=== PATIENT | female | born 1950 ===

== ENCOUNTER 2024-12-24 09:40 | Outpatient (CLI) | payer OTHER ==
[2024-12-24 10:30] LABS: HEMATOCRIT 34.8 % (36.0-45.00); HEMOGLOBIN 11.4 g/dL (12.0-15.00); MEAN CORPUSCULAR HEMOGLOBIN 28.5 pg (27.00-32.0); MEAN CORPUSCULAR HGB CONC 32.8 g/dl (32.0-36.0); PLATELET COUNT 194 K/uL (150-450); RED CELL DISTRIBUTION WIDTH 14.8 % (11.5-14.5)
[2024-12-24 11:41] LABS: % SATURACION 22.3 % (15-50); ALBUMIN 3.8 gm/dL (3.4-5.0); BILIRUBIN TOTAL 0.46 mg/dL (0.3-1.2); CALCIUM 9.1 mg/dL (8.5-10.1); CREATININE SERUM 0.9 mg/dL (0.55-1.02); FERRITIN 32.3 NG/ML (8-252); GFR 61.37; GLOBULINA 3.2 G/DL (2.4-3.5); POTASSIUM 4.51 mEq/L (3.5-5.1); T4 FREE 0.92 NG/ML (0.76-1.46); TSH 1.65 uIU/mL (0.358-3.74)
[2024-12-24 12:08] LABS: FOLIC ACID > 20.00 ng/ml (4.78-20)
[2024-12-24 15:17] LABS: MANUAL PLATELET COUNT 398
[2024-12-24 15:18] LABS: PLATELET ESTIMATE NORMAL (NORMAL)
[2024-12-25 09:08] LABS: CA 125 3.1 U/mL (0.0-38.1); CA 19-9 9 U/mL (0-35)
[2024-12-25 13:09] LABS: ERYTHROPOIETIN 16.6 mIU/mL (2.6-18.5)
[2024-12-25 15:04] LABS: hgb a 97.4 % (96.4-98.8); hgb a2 2.6 % (1.8-3.2); hgb f 0 % (0.0-2.0); hgb s 0 % (0.0)
== END 2024-12-24 09:47 | disposition home or self-care (01) ==
LOC: LAB 09:40
PROVIDERS: ATTEND Internal Medicine Hematology & Oncology
DX: D51.1 Vitamin B12 deficiency anemia due to selective vitamin B12 malabsorption with proteinuria (principal); D51.3 Other dietary vitamin B12 deficiency anemia; E11.9 Type 2 diabetes mellitus without complications; E78.2 Mixed hyperlipidemia; K59.09 Other constipation; D50.8 Other iron deficiency anemias; R79.9 Abnormal finding of blood chemistry, unspecified; I10 Essential (primary) hypertension; R74.02 Elevation of levels of lactic acid dehydrogenase [LDH]; K76.89 Other specified diseases of liver; D63.8 Anemia in other chronic diseases classified elsewhere; D51.0 Vitamin B12 deficiency anemia due to intrinsic factor deficiency; E03.8 Other specified hypothyroidism; E06.3 Autoimmune thyroiditis; C50.919 Malignant neoplasm of unspecified site of unspecified female breast; R97.8 Other abnormal tumor markers; D63.1 Anemia in chronic kidney disease

== ENCOUNTER 2025-07-18 10:05 | Outpatient (CLI) | payer OTHER ==
[2025-07-18 11:04] LABS: BASO % 0.5 % (0.1-1.2); EOS # 0.11 (0.04-0.54); EOS % 1.9 % (0.7-7.0); LYMPH # 1.03 (1.18-3.74); LYMPH % 17.8 % (19.3-53.1); MEAN PLATELET VOLUME 11.00 fl (9.4-12.4); MONO # 0.41 (0.24-0.82); MONO % 7.1 % (4.7-12.5); NEUT # 4.19 (1.56-6.13); NEUT % 72.4 % (34.0-71.1); RED CELL DISTRIBUTION WIDTH 14.7 % (11.6-14.4)
[2025-07-18 11:07] LABS: URINE APPEARANCE Clear; URINE BILIRRUBIN Negative (NEGATIVE); URINE BLOOD Negative; URINE COLOR Yellow; URINE GLUCOSE Negative (NEGATIVE); URINE KETONE Negative (NEGATIVE); URINE LEUKOCYTE Negative; URINE NITRATE Negative; URINE PROTEIN Negative (NEGATIVE); URINE UROBILINOGEN 0.2 E.U./dl
[2025-07-18 11:13] LABS: URINE BACTERIA 34.7 uL (0.0-1933); URINE EPITHELIAL CELLS 5.2 uL (0.0-38.8); URINE RBC 3.2 uL (0.0-20.8); URINE WBC 3.8 uL (0.0-23.2)
[2025-07-18 11:17] LABS: URINE CAST 0.00 uL (0.0-1.40)
[2025-07-18 12:06] LABS: % SATURACION 25.5 % (15-50); ALT/SGPT 28.0 U/L (12-78); AST/SGOT 17.0 U/L (15-37); BILIRUBIN TOTAL 0.48 mg/dL (0.3-1.2); BUN CREA RATIO 17.0 (7.0-25.0); CHOL HDL RATIO 3.2 (0-5.0); CREATININE SERUM 0.86 mg/dL (0.55-1.02); FE 75.0 ug/dl (50-170); GFR 64.5; GLOBULINA 3.2 G/DL (2.4-3.5); GLUCOSE FASTING 106.0 mg/dL (65-100); HDL 42.0 mg/dl (40-60); LDH 161.0 U/L (84-246); LDL 61.0 mg/dl (0-130); OSMOLALITY SERUM 282.0 MOSM/KG (275-295); TSH 1.68 uIU/mL (0.358-3.74); VLDL 31.0 (0-39)
[2025-07-18 15:35] LABS: FOLIC ACID > 20.00 ng/ml (4.78-20)
[2025-07-20 07:10] LABS: TRANSFERIN 235.0 mg/dL (192-364)
[2025-07-20 17:07] LABS: ERYTHROPOIETIN 14.3 mIU/mL (2.6-18.5)
== END 2025-07-18 10:13 | disposition home or self-care (01) ==
LOC: LAB 10:05
PROVIDERS: ATTEND Internal Medicine Hematology & Oncology
DX: D50.8 Other iron deficiency anemias (principal); D51.1 Vitamin B12 deficiency anemia due to selective vitamin B12 malabsorption with proteinuria; D51.3 Other dietary vitamin B12 deficiency anemia; E11.9 Type 2 diabetes mellitus without complications; E78.2 Mixed hyperlipidemia; K59.09 Other constipation; M81.0 Age-related osteoporosis without current pathological fracture; R79.9 Abnormal finding of blood chemistry, unspecified; I10 Essential (primary) hypertension; R74.02 Elevation of levels of lactic acid dehydrogenase [LDH]; K76.89 Other specified diseases of liver; D63.1 Anemia in chronic kidney disease; N39.0 Urinary tract infection, site not specified; E11.42 Type 2 diabetes mellitus with diabetic polyneuropathy; E55.9 Vitamin D deficiency, unspecified; E21.0 Primary hyperparathyroidism; D25.0 Submucous leiomyoma of uterus